=== PATIENT | female | born 1955 | race Two or more races ===

== ENCOUNTER 2017-08-28 13:28 | Inpatient (IN) | payer BC, OTHER ==
[~2017-08-28] VITALS: Ht 160 cm; Wt 60.5 kg
[2017-08-28] MEDS ORDERED: ACETAMINOPHEN 325 MG TABLET PO ONE (14:00)
[2017-08-28] MEDS ORDERED: SODIUM CHLORIDE 0.9% 1,000ML IVBOLUS ONE ×2 (14:00→15:00)
[2017-08-28] MEDS ORDERED: ACETAMINOPHEN 325 MG TABLET ONE (14:02)
[2017-08-28 14:19] LABS: PH, VENOUS 7.407 pH (7.320-7.420)
[2017-08-28 14:21] LABS: RAPID INFLUENZA A Negative (Negative); RAPID INFLUENZA B Negative (Negative)
[2017-08-28 14:32] LABS: ALANINE AMINOTRANSFERASE 104 U/L (12-78); ALBUMIN 1.8 g/dL (3.4-5.0); ANION GAP 14 mmol/L (5-15); CALCIUM 7.6 mg/dL (8.5-10.1); CHLORIDE 86 mmol/L (98-107); CREATININE 1.35 mg/dL (0.55-1.02)
[2017-08-28 14:34] LABS: ALKALINE PHOSPHATASE 327 U/L (45-117); BILIRUBIN,TOTAL 3.3 mg/dL (0.2-1.0); TOTAL PROTEIN 6.6 g/dL (6.4-8.2)
[2017-08-28 14:40] LABS: TROPONIN I < 0.015 ng/mL (0.000-0.045)
[2017-08-28] MEDS ORDERED: SODIUM CHLORIDE 0.9% 1,000 ML IV ONE (14:48)
[2017-08-28] MEDS ORDERED: METRONIDAZOLE PMX 500MG/100ML 100 ML ONE (14:54)
[2017-08-28] MEDS ORDERED: INSULIN REGULAR 100 UNITS/ML, 3ML VIAL ONE ×2 (14:54→15:00)
[2017-08-28] MEDS ORDERED: CEFOTETAN PMX 1GM/50ML 50 ML ONE (14:54)
[2017-08-28 14:57] LABS: MEAN CORPUSCULAR HEMOGLOBIN 27.6 pg (27.0-34.8); MEAN CORPUSCULAR HGB CONC 33.8 g/dL (32.4-35.8); MEAN CORPUSCULAR VOLUME 81.8 fL (80-100); MEAN PLATELET VOLUME 11.6 fL (7.4-10.4); PLATELET COUNT 69 x10^3/uL (130-400); RED BLOOD COUNT 4.15 x10^6/uL (3.82-5.3); RED CELL DISTRIBUTION WIDTH 14.5 % (9.6-15.2)
[2017-08-28 14:58] LABS: MD YES
[2017-08-28 15:00] LABS: ACETONE, SERUM Trace (10mg/dL) mg/dL (Negative); BAND#(MANUAL) 1.31 x10^3/uL; BANDS%(MANUAL) 13 % (0-7); LYMPH#(MANUAL) 0.61 x10^3/uL (1-3.4); LYMPHS% (MANUAL) 6 % (22-44); MONOS% (MANUAL) 1 % (2-9); SEG#(MANUAL) 8.08 x10^3/uL (1.8-6.8); SEGS% (MANUAL) 80 % (42-75)
[2017-08-28] MEDS ORDERED: METRONIDAZOLE PMX 500MG/100ML 100 ML IV ONE (15:00)
[2017-08-28] MEDS ORDERED: VANCOMYCIN PER PHARMACY MC PRN (15:00)
[2017-08-28] MEDS ORDERED: VANCOMYCIN 1,200 MG in SODIUM CHLORIDE 0.9% 250 ML IV ONE (15:00)
[2017-08-28] MEDS ORDERED: INSULIN REGULAR 100 UNITS/ML, 3ML VIAL SQ-INSULIN ONE (15:00)
[2017-08-28] MEDS ORDERED: CEFOTETAN PMX 1GM/50ML 50 ML IV ONE (15:00)
[2017-08-28 15:01] LABS: <PLATELET ESTIMATE> DECREASED; <RBC MORPHOLOGY> NORMAL; LARGE PLATELETS 1+
[2017-08-28 15:17] LABS: CULTURE INDICATED? YES; MICROSCOPIC INDICATED
[2017-08-28 17:00] VITALS: BP 122/73
[2017-08-28] MEDS ORDERED: DEXTROSE 50%, 50ML SYRINGE IVPush PRN (17:30)
[2017-08-28] MEDS ORDERED: DEXTROSE 4 GM TAB.CHEW PO PRN (17:30)
[2017-08-28] MEDS ORDERED: ONDANSETRON 2MG/ML, 2ML IVPush PRN (17:30)
[2017-08-28] MEDS ORDERED: GLUCAGON 1 MG IM PRN (17:30)
[2017-08-28] MEDS ORDERED: ACETAMINOPHEN 325 MG TABLET PO PRN (17:30)
[2017-08-28] MEDS: LACTATED RINGERS 1,000 ML IV SCH (17:59)
[2017-08-28] MEDS: INSULIN REGULAR 100 UNITS/ML, 3ML VIAL SQ-INSULIN SCH ×2 (18:24→22:32)
[2017-08-28] MEDS: SODIUM CHLORIDE FLUSH 10ML SYR IVF SCH (21:00)
[2017-08-28 21:29] VITALS: BP 135/72
[2017-08-28] MEDS: METRONIDAZOLE PMX 500MG/100ML 100 ML IV SCH (23:23)
[2017-08-29 01:13] VITALS: BP 120/66
[2017-08-29] MEDS: CEFTRIAXONE 2,000 MG in SODIUM CHLORIDE 0.9% 50 ML IV SCH (02:56)
[2017-08-29] MEDS ORDERED: CEFTRIAXONE PMX 2GM/50ML 50 ML IV SCH (03:00)
[2017-08-29 06:55] VITALS: BP 120/67
[2017-08-29 07:09] LABS: ALANINE AMINOTRANSFERASE 72 U/L (12-78); ALBUMIN 1.5 g/dL (3.4-5.0); ANION GAP 10 mmol/L (5-15); CHLORIDE 101 mmol/L (98-107); CREATININE 0.83 mg/dL (0.55-1.02)
[2017-08-29 07:12] LABS: ALKALINE PHOSPHATASE 198 U/L (45-117); BILIRUBIN,TOTAL 1.4 mg/dL (0.2-1.0); TOTAL PROTEIN 5.6 g/dL (6.4-8.2)
[2017-08-29] MEDS: LACTATED RINGERS 1,000 ML IV SCH (07:40)
[2017-08-29] MEDS: SODIUM CHLORIDE FLUSH 10ML SYR IVF SCH ×2 (07:40→20:47)
[2017-08-29] MEDS: METRONIDAZOLE PMX 500MG/100ML 100 ML IV SCH ×3 (07:40→23:50)
[2017-08-29] MEDS: INSULIN REGULAR 100 UNITS/ML, 3ML VIAL SQ-INSULIN SCH ×4 (07:41→20:47)
[2017-08-29 12:25] VITALS: BP 117/64
[2017-08-29] MEDS: POTASSIUM CHLORIDE 20 MEQ TAB.ER.PRT PO SCH ×2 (12:32→16:22)
[2017-08-29 20:18] VITALS: BP 118/68
[2017-08-30] MEDS: CEFTRIAXONE 2,000 MG in SODIUM CHLORIDE 0.9% 50 ML IV SCH (02:50)
[2017-08-30 02:56] VITALS: BP 119/68
[2017-08-30 07:18] VITALS: BP 120/67
[2017-08-30] MEDS: METRONIDAZOLE PMX 500MG/100ML 100 ML IV SCH ×2 (07:44→16:04)
[2017-08-30] MEDS: INSULIN REGULAR 100 UNITS/ML, 3ML VIAL SQ-INSULIN SCH ×4 (07:44→20:40)
[2017-08-30] MEDS: SODIUM CHLORIDE FLUSH 10ML SYR IVF SCH ×2 (07:44→21:00)
[2017-08-30 07:55] LABS: MEAN CORPUSCULAR HEMOGLOBIN 27.1 pg (27.0-34.8); MEAN CORPUSCULAR HGB CONC 33.6 g/dL (32.4-35.8); MEAN CORPUSCULAR VOLUME 80.7 fL (80-100); MEAN PLATELET VOLUME 9.8 fL (7.4-10.4); PLATELET COUNT 124 x10^3/uL (130-400); RED BLOOD COUNT 4.09 x10^6/uL (3.82-5.3); RED CELL DISTRIBUTION WIDTH 14.1 % (9.6-15.2)
[2017-08-30 08:05] LABS: ALANINE AMINOTRANSFERASE 42 U/L (12-78); ALBUMIN 1.3 g/dL (3.4-5.0); ANION GAP 9 mmol/L (5-15); CALCIUM 6.9 mg/dL (8.5-10.1); CHLORIDE 105 mmol/L (98-107)
[2017-08-30 08:08] LABS: ALKALINE PHOSPHATASE 161 U/L (45-117); BILIRUBIN,TOTAL 1.1 mg/dL (0.2-1.0); CREATININE 0.67 mg/dL (0.55-1.02); TOTAL PROTEIN 6.2 g/dL (6.4-8.2)
[2017-08-30 08:27] LABS: MD YES
[2017-08-30 08:44] LABS: <PLATELET ESTIMATE> ADEQUATE; <PLT MORPHOLOGY> NORMAL PLT MORPH; <RBC MORPHOLOGY> NORMAL; LYMPH#(MANUAL) 0.65 x10^3/uL (1-3.4); LYMPHS% (MANUAL) 6 % (22-44); MONOS#(MANUAL) 0.65 x10^3/uL (0.3-2.7); MONOS% (MANUAL) 6 % (2-9); SEG#(MANUAL) 9.59 x10^3/uL (1.8-6.8); SEGS% (MANUAL) 88 % (42-75)
[2017-08-30] MEDS ORDERED: FUROSEMIDE 20 MG/2 ML IV ONE (09:30)
[2017-08-30 13:32] VITALS: BP 126/73
[2017-08-30 20:10] VITALS: BP 107/68
[2017-08-31] MEDS: METRONIDAZOLE PMX 500MG/100ML 100 ML IV SCH ×2 (00:19→07:50)
[2017-08-31 02:00] VITALS: BP 121/71
[2017-08-31] MEDS: CEFTRIAXONE 2,000 MG in SODIUM CHLORIDE 0.9% 50 ML IV SCH (03:28)
[2017-08-31 07:35] VITALS: BP 129/68
[2017-08-31] MEDS: INSULIN REGULAR 100 UNITS/ML, 3ML VIAL SQ-INSULIN SCH ×4 (08:34→21:13)
[2017-08-31] MEDS: SODIUM CHLORIDE FLUSH 10ML SYR IVF SCH ×2 (09:00→21:13)
[2017-08-31] MEDS ORDERED: METF10002 PO (10:41)
[2017-08-31] MEDS ORDERED: CIPR500T3 PO (10:41)
[2017-08-31 12:28] VITALS: BP 106/67
[2017-08-31] MEDS ORDERED: POTASSIUM CHLORIDE 20 MEQ TAB.ER.PRT PO ONE (13:00)
[2017-08-31] MEDS ORDERED: FUROSEMIDE 40 MG/4 ML IV ONE (13:00)
[2017-08-31] MEDS ORDERED: OMNIPAQUE 350 MG/ML, 100ML BOTTLE ONE (17:27)
[2017-08-31 18:36] VITALS: BP 118/65
[2017-08-31] MEDS: FUROSEMIDE 20 MG/2 ML IV SCH (18:44)
[2017-09-01] MEDS: FUROSEMIDE 20 MG/2 ML IV SCH ×5 (00:20→23:57)
[2017-09-01 02:40] VITALS: BP 123/70
[2017-09-01] MEDS: CEFTRIAXONE 2,000 MG in SODIUM CHLORIDE 0.9% 50 ML IV SCH (03:00)
[2017-09-01 06:48] VITALS: BP 129/70
[2017-09-01 08:00] LABS: ANION GAP 9 mmol/L (5-15); CALCIUM 7.4 mg/dL (8.5-10.1); CHLORIDE 103 mmol/L (98-107); CREATININE 0.73 mg/dL (0.55-1.02)
[2017-09-01] MEDS: SODIUM CHLORIDE FLUSH 10ML SYR IVF SCH ×2 (08:12→21:57)
[2017-09-01] MEDS: INSULIN REGULAR 100 UNITS/ML, 3ML VIAL SQ-INSULIN SCH ×4 (08:13→21:57)
[2017-09-01 12:58] VITALS: BP 126/65
[2017-09-01] MEDS: FLUCONAZOLE 200 MG TABLET PO SCH (17:00)
[2017-09-01 19:15] VITALS: BP 115/69
[2017-09-02 01:12] VITALS: BP 114/71
[2017-09-02] MEDS: CEFTRIAXONE 2,000 MG in SODIUM CHLORIDE 0.9% 50 ML IV SCH (03:00)
[2017-09-02] MEDS: FUROSEMIDE 20 MG/2 ML IV SCH ×4 (06:09→23:33)
[2017-09-02 07:02] VITALS: BP 148/71
[2017-09-02] MEDS: INSULIN REGULAR 100 UNITS/ML, 3ML VIAL SQ-INSULIN SCH ×4 (08:00→20:27)
[2017-09-02] MEDS: SODIUM CHLORIDE FLUSH 10ML SYR IVF SCH ×2 (08:01→20:27)
[2017-09-02 12:06] VITALS: BP_SYST 100; BP_SYST 99; BP_DIAS 55; BP_DIAS 58
[2017-09-02 12:36] VITALS: BP 105/62
[2017-09-02 17:25] VITALS: BP 124/72
[2017-09-02] MEDS: FLUCONAZOLE 200 MG TABLET PO SCH (17:27)
[2017-09-02 18:57] VITALS: BP 120/74
[2017-09-03 00:41] VITALS: BP 116/71
[2017-09-03] MEDS: CEFTRIAXONE 2,000 MG in SODIUM CHLORIDE 0.9% 50 ML IV SCH (03:31)
[2017-09-03 05:26] LABS: CHLORIDE 96 mmol/L (98-107)
[2017-09-03 05:31] LABS: ANION GAP 9 mmol/L (5-15); CALCIUM 7.8 mg/dL (8.5-10.1); CREATININE 0.82 mg/dL (0.55-1.02)
[2017-09-03] MEDS: FUROSEMIDE 20 MG/2 ML IV SCH ×3 (05:41→17:41)
[2017-09-03 06:57] VITALS: BP 121/71
[2017-09-03] MEDS: INSULIN REGULAR 100 UNITS/ML, 3ML VIAL SQ-INSULIN SCH ×4 (07:00→21:13)
[2017-09-03] MEDS: POTASSIUM CHLORIDE 20 MEQ TAB.ER.PRT PO SCH ×2 (07:40→11:52)
[2017-09-03 07:46] LABS: TROPONIN I < 0.015 ng/mL (0.000-0.045)
[2017-09-03] MEDS ORDERED: REGADENOSON 0.4 MG/5 ML SYRINGE ONE (08:09)
[2017-09-03 11:50] VITALS: BP 104/63
[2017-09-03] MEDS: SODIUM CHLORIDE FLUSH 10ML SYR IVF SCH ×2 (11:51→21:14)
[2017-09-03 14:30] VITALS: BP 98/62
[2017-09-03 17:30] VITALS: BP 114/72
[2017-09-03] MEDS: FLUCONAZOLE 200 MG TABLET PO SCH (17:41)
[2017-09-03 21:16] VITALS: BP 120/72
[2017-09-03 22:28] LABS: HEMOGLOBIN A1C 12.8 % (4.2-6.3)
[2017-09-04] MEDS: FUROSEMIDE 20 MG/2 ML IV SCH ×3 (00:36→11:56)
[2017-09-04 00:37] VITALS: BP 133/76
[2017-09-04] MEDS: CEFTRIAXONE 2,000 MG in SODIUM CHLORIDE 0.9% 50 ML IV SCH (03:41)
[2017-09-04 06:39] VITALS: BP 121/75
[2017-09-04] MEDS: INSULIN REGULAR 100 UNITS/ML, 3ML VIAL SQ-INSULIN SCH ×2 (08:16→12:19)
[2017-09-04] MEDS: SODIUM CHLORIDE FLUSH 10ML SYR IVF SCH (08:16)
[2017-09-04 09:01] LABS: ANION GAP 7 mmol/L (5-15); CALCIUM 8.2 mg/dL (8.5-10.1); CHLORIDE 95 mmol/L (98-107); CREATININE 0.96 mg/dL (0.55-1.02)
[2017-09-04] MEDS ORDERED: CIPR500T3 PO (10:54)
[2017-09-04] MEDS ORDERED: ASPI-515 PO (10:54)
[2017-09-04] MEDS ORDERED: LISI5TAB7 PO (10:54)
[2017-09-04] MEDS ORDERED: FURO-93 PO (10:54)
== END 2017-09-04 14:36 | disposition home or self-care (01) | DRG 871 ==
LOC: ED 16:21 → EDIP 16:39 → 4EST 16:41
PROVIDERS: ADMIT Internal Medicine Pulmonary Disease; ATTEND Internal Medicine Pulmonary Disease
PROC: 0T9B70Z Drainage of Bladder with Drainage Device, Via Natural or Artificial Opening (ICD-10-PCS; principal; 2017-08-28)
DX: A41.51 Sepsis due to Escherichia coli [E. coli] (principal); J96.01 Acute respiratory failure with hypoxia; N17.0 Acute kidney failure with tubular necrosis; E11.00 Type 2 diabetes mellitus with hyperosmolarity without nonketotic hyperglycemic-hyperosmolar coma (NKHHC); I50.43 Acute on chronic combined systolic (congestive) and diastolic (congestive) heart failure; D69.6 Thrombocytopenia, unspecified; E87.1 Hypo-osmolality and hyponatremia; K80.40 Calculus of bile duct with cholecystitis, unspecified, without obstruction; N13.6 Pyonephrosis; E86.0 Dehydration; E87.6 Hypokalemia; I11.0 Hypertensive heart disease with heart failure; K72.90 Hepatic failure, unspecified without coma; M79.7 Fibromyalgia; R65.20 Severe sepsis without septic shock; Z79.4 Long term (current) use of insulin
CPT/HCPCS: 36415; 71045; 71046; 71275; 76700; 78452; 80048; 80053; 81001; 82010; 82150; 82803; 82947; 82962; 83036; 83605; 83690; 83735; 83880; 84145; 84484; 85025; 87040; 87077; 87086; 87106; 87186; 87400; 93005; 93017; 93306; 96361; 96365; 96372; J0696; J1815; J1940; J2785; J3370; Q9967; A9502; C9898; J7030; J7050; J7120; S0074

== ENCOUNTER 2018-02-03 18:49 | Inpatient (IN) | payer OTHER ==
[~2018-02-03] VITALS: Ht 157.5 cm; Wt 68.0 kg
[~2018-02-03 18:49] MED LIST: ASPI-515 PO; CIPR500T3 PO; FURO-93 PO; LISI5TAB7 PO; METF10003 PO
[2018-02-03] MEDS ORDERED: ASPIRIN 81 MG TABLET CHEW PO ONE (19:30)
[2018-02-03] MEDS ORDERED: METF500T5 PO (19:31)
[2018-02-03] MEDS ORDERED: SIMV20TA3 PO (19:31)
[2018-02-03] MEDS ORDERED: LISI-167 PO (19:31)
[2018-02-03] MEDS ORDERED: ASPIRIN 81 MG TABLET CHEW ONE (19:36)
[2018-02-03 19:46] LABS: BASOPHILS # (AUTO) 0.02 x10^3/uL (0-0.1); BASOPHILS % (AUTO) 0 % (0-1); EOSINOPHILS # (AUTO) 0.13 x10^3/uL (0-0.4); EOSINOPHILS % (AUTO) 3 % (1-7); LYMPHOCYTES % (AUTO) 46 % (22-44); MD NO; MEAN CORPUSCULAR HEMOGLOBIN 29.9 pg (27.0-34.8); MEAN CORPUSCULAR HGB CONC 34.3 g/dL (32.4-35.8); MEAN CORPUSCULAR VOLUME 87.4 fL (80-100); MONOCYTES # (AUTO) 0.32 x10^3/uL (0.2-0.8); MONOCYTES % (AUTO) 6 % (2-9); NEUTROPHILS # (AUTO) 2.23 x10^3/uL (1.8-6.8); NEUTROPHILS % (AUTO) 45 % (42-75); PLATELET COUNT 207 x10^3/uL (130-400); RED CELL DISTRIBUTION WIDTH 12.6 % (9.6-15.2)
[2018-02-03 19:54] LABS: ALANINE AMINOTRANSFERASE 245 U/L (12-78); ALBUMIN 3.7 g/dL (3.4-5.0); ANION GAP 7 mmol/L (5-15); CHLORIDE 103 mmol/L (98-107); CREATININE 1.39 mg/dL (0.55-1.02)
[2018-02-03 19:59] LABS: ALKALINE PHOSPHATASE 75 U/L (45-117); BILIRUBIN,TOTAL 0.4 mg/dL (0.2-1.0); TROPONIN I < 0.015 ng/mL (0.000-0.045)
[2018-02-03] MEDS ORDERED: NITROGLYCERIN SINGLE TAB 0.4 MG SL ONE (19:59)
[2018-02-03] MEDS ORDERED: MORPHINE SULFATE 4 MG/ML, 1ML ONE (19:59)
[2018-02-03] MEDS ORDERED: NITROGLYCERIN SINGLE TAB 0.4 MG SL PRN (20:00)
[2018-02-03] MEDS ORDERED: MORPHINE SULFATE 4 MG/ML, 1ML IVPush PRN (20:00)
[2018-02-03] MEDS ORDERED: SODIUM CHLORIDE 0.9%, 500ML IVBOLUS ONE (21:00)
[2018-02-03] MEDS ORDERED: SODIUM CHLORIDE 0.9% 1,000 ML IV SCH (22:34)
[2018-02-03] MEDS ORDERED: ACETAMINOPHEN 325 MG TABLET PO PRN (23:00)
[2018-02-03] MEDS ORDERED: BISACODYL 10 MG SUPP PR PRN (23:00)
[2018-02-03] MEDS ORDERED: ONDANSETRON 2MG/ML, 2ML IVPush PRN (23:00)
[2018-02-03] MEDS ORDERED: POLYETHYLENE GLYCOL 17 GM PACKET PO PRN (23:00)
[2018-02-03] MEDS ORDERED: DOCUSATE 100 MG CAPSULE PO PRN (23:00)
[2018-02-03] MEDS ORDERED: LABETALOL 5MG/ML, 20ML IVPush PRN (23:00)
[2018-02-03] MEDS ORDERED: NITROGLYCERIN 0.4 MG BOTTLE (25 TABS) SL PRN (23:00)
[2018-02-03 23:01] VITALS: BP 160/76
[2018-02-03] MEDS: morphine SULFATE 10 MG/ML, 1ML IVPush PRN (23:04)
[2018-02-03] MEDS: HEPARIN 5,000 UNITS/ML, 1ML SQ SCH (23:10)
[2018-02-04 00:10] LABS: TROPONIN I < 0.015 ng/mL (0.000-0.045)
[2018-02-04 00:28] VITALS: BP 150/74
[2018-02-04 01:39] VITALS: BP 152/79
[2018-02-04 05:47] LABS: BASOPHILS # (AUTO) 0.01 x10^3/uL (0-0.1); BASOPHILS % (AUTO) 0 % (0-1); EOSINOPHILS # (AUTO) 0.17 x10^3/uL (0-0.4); EOSINOPHILS % (AUTO) 3 % (1-7); LYMPHOCYTES # (AUTO) 2.32 x10^3/uL (1-3.4); LYMPHOCYTES % (AUTO) 47 % (22-44); MD NO; MEAN CORPUSCULAR HGB CONC 33.2 g/dL (32.4-35.8); MEAN CORPUSCULAR VOLUME 87.1 fL (80-100); MEAN PLATELET VOLUME 7.9 fL (7.4-10.4); MONOCYTES # (AUTO) 0.33 x10^3/uL (0.2-0.8); MONOCYTES % (AUTO) 7 % (2-9); NEUTROPHILS # (AUTO) 2.15 x10^3/uL (1.8-6.8); NEUTROPHILS % (AUTO) 43 % (42-75); PLATELET COUNT 180 x10^3/uL (130-400); RED BLOOD COUNT 3.36 x10^6/uL (3.82-5.3); RED CELL DISTRIBUTION WIDTH 12.9 % (9.6-15.2)
[2018-02-04 05:55] LABS: ALBUMIN 3.2 g/dL (3.4-5.0); ANION GAP 6 mmol/L (5-15); CALCIUM 8.5 mg/dL (8.5-10.1); CHLORIDE 109 mmol/L (98-107)
[2018-02-04 05:57] LABS: TROPONIN I < 0.015 ng/mL (0.000-0.045)
[2018-02-04 05:59] LABS: ALANINE AMINOTRANSFERASE 182 U/L (12-78); ALKALINE PHOSPHATASE 64 U/L (45-117); BILIRUBIN,TOTAL 0.4 mg/dL (0.2-1.0); CHOL/HDL RATIO 4.6; CHOLESTEROL, TOTAL 180 mg/dL (140-239); CREATININE 1.15 mg/dL (0.55-1.02); HDL CHOL % 22 % (28-40); HDL CHOLESTEROL (DIRECT) 39 mg/dL (40-60); LDL CHOLESTEROL,CALCULATED 103 mg/dL (54-169); LDL/HDL RATIO 2.6 (0.5-3.0); TOTAL PROTEIN 7.2 g/dL (6.4-8.2); TRIGLYCERIDES 189 mg/dL (50-200); VLDL CHOLESTEROL 38 mg/dL (0-25)
[2018-02-04 07:39] VITALS: BP 154/77
[2018-02-04] MEDS: SODIUM CHLORIDE 0.9% 1,000 ML IV SCH ×2 (09:18→17:47)
[2018-02-04] MEDS: LISINOPRIL 5 MG TABLET PO SCH (09:18)
[2018-02-04] MEDS: ASPIRIN 325 MG TABLET EC PO SCH (09:18)
[2018-02-04] MEDS: HEPARIN 5,000 UNITS/ML, 1ML SQ SCH ×3 (09:21→22:59)
[2018-02-04 13:02] VITALS: BP 133/71
[2018-02-04] MEDS ORDERED: MAALOX/HYOSCYAMINE/LIDOCAINE 45 ML BTL PO ONE (15:30)
[2018-02-04] MEDS: INSULIN LISPRO 100 UNITS/ML, PEN SQ-INSULIN SCH ×2 (15:50→21:00)
[2018-02-04] MEDS: FAMOTIDINE 20 MG/2 ML IVPush SCH (20:56)
[2018-02-04 20:59] VITALS: BP 115/65
[2018-02-05 01:27] VITALS: BP 114/66
[2018-02-05] MEDS: SODIUM CHLORIDE 0.9% 1,000 ML IV SCH (01:48)
[2018-02-05] MEDS: morphine SULFATE 10 MG/ML, 1ML IVPush PRN (01:56)
[2018-02-05 03:46] LABS: BASOPHILS # (AUTO) 0.03 x10^3/uL (0-0.1); BASOPHILS % (AUTO) 1 % (0-1); EOSINOPHILS # (AUTO) 0.17 x10^3/uL (0-0.4); EOSINOPHILS % (AUTO) 3 % (1-7); LYMPHOCYTES # (AUTO) 2.33 x10^3/uL (1-3.4); LYMPHOCYTES % (AUTO) 40 % (22-44); MD NO; MEAN CORPUSCULAR HEMOGLOBIN 30.7 pg (27.0-34.8); MEAN CORPUSCULAR HGB CONC 34.9 g/dL (32.4-35.8); MEAN CORPUSCULAR VOLUME 88.1 fL (80-100); MONOCYTES # (AUTO) 0.37 x10^3/uL (0.2-0.8); MONOCYTES % (AUTO) 6 % (2-9); NEUTROPHILS # (AUTO) 2.99 x10^3/uL (1.8-6.8); NEUTROPHILS % (AUTO) 51 % (42-75); PLATELET COUNT 185 x10^3/uL (130-400); RED BLOOD COUNT 3.11 x10^6/uL (3.82-5.3); RED CELL DISTRIBUTION WIDTH 13.1 % (9.6-15.2)
[2018-02-05 03:56] LABS: ALANINE AMINOTRANSFERASE 108 U/L (12-78); ANION GAP 6 mmol/L (5-15); CALCIUM 7.9 mg/dL (8.5-10.1); CHLORIDE 114 mmol/L (98-107)
[2018-02-05 03:59] LABS: ALKALINE PHOSPHATASE 57 U/L (45-117); BILIRUBIN,TOTAL 0.4 mg/dL (0.2-1.0); CREATININE 1.33 mg/dL (0.55-1.02); TOTAL PROTEIN 6.7 g/dL (6.4-8.2)
[2018-02-05] MEDS: HEPARIN 5,000 UNITS/ML, 1ML SQ SCH (06:37)
[2018-02-05] MEDS: ASPIRIN 325 MG TABLET EC PO SCH (06:37)
[2018-02-05] MEDS: INSULIN LISPRO 100 UNITS/ML, PEN SQ-INSULIN SCH ×2 (06:40→11:00)
[2018-02-05] MEDS ORDERED: SODIUM CHLORIDE 0.45% 1,000 ML IV SCH (07:00)
[2018-02-05 07:44] VITALS: BP 143/73
[2018-02-05] MEDS: LISINOPRIL 5 MG TABLET PO SCH (08:04)
[2018-02-05] MEDS: FAMOTIDINE 20 MG/2 ML IVPush SCH (08:04)
[2018-02-05] MEDS ORDERED: PANT40TA5 PO (10:48)
== END 2018-02-05 12:33 | disposition home or self-care (01) | DRG 683 ==
LOC: ED 20:06 → EDIP 22:41 → 5SO 22:54
PROVIDERS: ADMIT Internal Medicine; ATTEND Internal Medicine
DX: N17.0 Acute kidney failure with tubular necrosis (principal); G72.0 Drug-induced myopathy; R07.89 Other chest pain; T46.6X5A Adverse effect of antihyperlipidemic and antiarteriosclerotic drugs, initial encounter; Z66 Do not resuscitate; M79.7 Fibromyalgia; I50.9 Heart failure, unspecified; I11.0 Hypertensive heart disease with heart failure; E78.5 Hyperlipidemia, unspecified; E11.65 Type 2 diabetes mellitus with hyperglycemia; D64.9 Anemia, unspecified; D69.6 Thrombocytopenia, unspecified; R74.0 Nonspecific elevation of levels of transaminase and lactic acid dehydrogenase [LDH]; Z79.84 Long term (current) use of oral hypoglycemic drugs; Z79.82 Long term (current) use of aspirin; Z83.3 Family history of diabetes mellitus; Z82.49 Family history of ischemic heart disease and other diseases of the circulatory system; Z79.1 Long term (current) use of non-steroidal anti-inflammatories (NSAID); Z79.899 Other long term (current) drug therapy; Z88.0 Allergy status to penicillin
CPT/HCPCS: 36415; 99285; S0028; 71045; 76700; 80053; 80061; 82550; 82962; 83735; 84100; 84484; 85025; 85379; 93005; 93306; 96374; J1644; J2270; J7030; J7040

== ENCOUNTER 2018-04-01 09:38 | Emergency (ER) | payer OTHER ==
[~2018-04-01] VITALS: Ht 157.5 cm; Wt 55.5 kg
[~2018-04-01 09:38] MED LIST changes: +LISI-167 PO; -METF10003 PO; +METF10007 PO; +METF500T17 PO; +PANT40TA5 PO; +SIMV20TA3 PO
[2018-04-01] MEDS ORDERED: ONDANSETRON ODT 4 MG ONE (10:39)
[2018-04-01] MEDS ORDERED: HYDROmorphone 2 MG/ML, 1ML ONE (10:40)
[2018-04-01] MEDS ORDERED: HYDROmorphone 2 MG/ML, 1ML IVPush PRN (11:00)
[2018-04-01] MEDS ORDERED: ONDANSETRON 2MG/ML, 2ML IVPush ONE (11:00)
[2018-04-01] MEDS ORDERED: SODIUM CHLORIDE FLUSH 10ML SYR IVF ONE (11:00)
[2018-04-01 11:02] LABS: BASOPHILS # (AUTO) 0.03 x10^3/uL (0-0.1); BASOPHILS % (AUTO) 1 % (0-1); EOSINOPHILS % (AUTO) 5 % (1-7); LYMPHOCYTES # (AUTO) 2.14 x10^3/uL (1-3.4); LYMPHOCYTES % (AUTO) 38 % (22-44); MD NO; MEAN PLATELET VOLUME 8.1 fL (7.4-10.4); MONOCYTES # (AUTO) 0.32 x10^3/uL (0.2-0.8); MONOCYTES % (AUTO) 6 % (2-9); NEUTROPHILS % (AUTO) 50 % (42-75); PLATELET COUNT 197 x10^3/uL (130-400); RED BLOOD COUNT 3.48 x10^6/uL (3.82-5.3); RED CELL DISTRIBUTION WIDTH 12.7 % (9.6-15.2)
[2018-04-01 11:07] LABS: MICROSCOPIC AUTO
[2018-04-01 11:09] LABS: CULTURE INDICATED? YES
[2018-04-01 11:14] LABS: INTERNATIONAL NORMALIZED RATIO 1.03 (0.93-1.1); PROTHROMBIN TIME 10.7 Seconds (9.6-11.5)
[2018-04-01 11:15] LABS: ALANINE AMINOTRANSFERASE 21 U/L (12-78); ALBUMIN 3.9 g/dL (3.4-5.0); ANION GAP 9 mmol/L (5-15); CALCIUM 8.9 mg/dL (8.5-10.1); CHLORIDE 108 mmol/L (98-107)
[2018-04-01 11:20] LABS: ALKALINE PHOSPHATASE 37 U/L (45-117); BILIRUBIN,TOTAL 0.4 mg/dL (0.2-1.0); CREATINE KINASE, TOTAL 82 U/L (26-192); CREATININE 1.64 mg/dL (0.55-1.02)
[2018-04-01] MEDS ORDERED: CEFTRIAXONE PMX 1GM/50ML 50 ML ONE (12:51)
[2018-04-01] MEDS ORDERED: CEFTRIAXONE 1,000 MG in SODIUM CHLORIDE 0.9% 50 ML IVPB ONE (13:00)
[2018-04-01 13:20] VITALS: BP 129/70
== END 2018-04-01 14:36 | disposition home or self-care (01) ==
LOC: ED 12:44
DX: G89.29 Other chronic pain (principal); N30.00 Acute cystitis without hematuria; E78.00 Pure hypercholesterolemia, unspecified; I50.9 Heart failure, unspecified; I11.0 Hypertensive heart disease with heart failure; E11.40 Type 2 diabetes mellitus with diabetic neuropathy, unspecified
CPT/HCPCS: 36415; 74022; 76700; 80053; 81001; 82550; 83605; 83690; 83880; 85025; 85610; 85730; 87040; 87086; 96374; 96375; 99285; J0696; J1170; J2405

== ENCOUNTER → 2018-04-03 | Outpatient (CLI) | payer OTHER ==
[2018-04-03 16:22] LABS: BASOPHILS # (AUTO) 0.03 x10^3/uL (0-0.1); BASOPHILS % (AUTO) 1 % (0-1); EOSINOPHILS # (AUTO) 0.49 x10^3/uL (0-0.4); EOSINOPHILS % (AUTO) 9 % (1-7); LYMPHOCYTES # (AUTO) 2.38 x10^3/uL (1-3.4); LYMPHOCYTES % (AUTO) 43 % (22-44); MD NO; MEAN CORPUSCULAR HEMOGLOBIN 29.3 pg (27.0-34.8); MEAN CORPUSCULAR HGB CONC 33.4 g/dL (32.4-35.8); MEAN CORPUSCULAR VOLUME 87.7 fL (80-100); MEAN PLATELET VOLUME 7.8 fL (7.4-10.4); MONOCYTES # (AUTO) 0.32 x10^3/uL (0.2-0.8); MONOCYTES % (AUTO) 6 % (2-9); NEUTROPHILS # (AUTO) 2.37 x10^3/uL (1.8-6.8); NEUTROPHILS % (AUTO) 42 % (42-75); PLATELET COUNT 204 x10^3/uL (130-400); RED BLOOD COUNT 3.45 x10^6/uL (3.82-5.3); RED CELL DISTRIBUTION WIDTH 12.3 % (9.6-15.2)
[2018-04-03 16:25] LABS: MICROSCOPIC AUTO
[2018-04-03 16:29] LABS: ALANINE AMINOTRANSFERASE 21 U/L (12-78); ANION GAP 8 mmol/L (5-15); CALCIUM 8.8 mg/dL (8.5-10.1); CHLORIDE 105 mmol/L (98-107); CREATININE 1.35 mg/dL (0.55-1.02)
[2018-04-03 16:31] LABS: ALKALINE PHOSPHATASE 38 U/L (45-117); BILIRUBIN,TOTAL 0.4 mg/dL (0.2-1.0); TOTAL PROTEIN 8.6 g/dL (6.4-8.2)
[2018-04-03 16:36] LABS: CREATININE,URINE RANDOM 98.7 mg/dL
== END | disposition home or self-care (01) ==
LOC: LAB 15:53
PROVIDERS: ATTEND Internal Medicine Nephrology
DX: E11.22 Type 2 diabetes mellitus with diabetic chronic kidney disease (principal); N18.3 Chronic kidney disease, stage 3 (moderate)
CPT/HCPCS: 36415; 80053; 81001; 82570; 84100; 84156; 85025

== ENCOUNTER → 2018-04-12 | Outpatient (CLI) | payer OTHER ==
[2018-04-12 15:52] LABS: CULTURE INDICATED? NO; MICROSCOPIC NOT IND
[2018-04-12 15:55] LABS: BASOPHILS # (AUTO) 0.06 x10^3/uL (0-0.1); BASOPHILS % (AUTO) 1 % (0-1); EOSINOPHILS # (AUTO) 0.36 x10^3/uL (0-0.4); EOSINOPHILS % (AUTO) 6 % (1-7); LYMPHOCYTES # (AUTO) 2.01 x10^3/uL (1-3.4); LYMPHOCYTES % (AUTO) 34 % (22-44); MD NO; MEAN CORPUSCULAR HEMOGLOBIN 30.2 pg (27.0-34.8); MEAN CORPUSCULAR HGB CONC 33.9 g/dL (32.4-35.8); MEAN CORPUSCULAR VOLUME 89.1 fL (80-100); MEAN PLATELET VOLUME 8.1 fL (7.4-10.4); MONOCYTES # (AUTO) 0.36 x10^3/uL (0.2-0.8); MONOCYTES % (AUTO) 6 % (2-9); NEUTROPHILS # (AUTO) 3.22 x10^3/uL (1.8-6.8); NEUTROPHILS % (AUTO) 54 % (42-75); PLATELET COUNT 228 x10^3/uL (130-400); RED BLOOD COUNT 3.33 x10^6/uL (3.82-5.3); RED CELL DISTRIBUTION WIDTH 12.9 % (9.6-15.2)
[2018-04-12 15:59] LABS: % IRON SATURATION 18 % (20-55); ALBUMIN 3.6 g/dL (3.4-5.0); ANION GAP 7 mmol/L (5-15); CALCIUM 9.1 mg/dL (8.5-10.1); CHLORIDE 104 mmol/L (98-107); CREATININE 1.79 mg/dL (0.55-1.02); IRON LEVEL 50 mcg/dL (50-170); TOTAL IRON BINDING CAPACITY 271 mcg/dL (250-450)
[2018-04-12 16:00] LABS: CREATININE,URINE RANDOM 64.9 mg/dL
== END | disposition home or self-care (01) ==
LOC: CFH 14:25
PROVIDERS: ATTEND Internal Medicine Nephrology
DX: N18.3 Chronic kidney disease, stage 3 (moderate) (principal); N17.9 Acute kidney failure, unspecified; E11.9 Type 2 diabetes mellitus without complications
CPT/HCPCS: 36415; 80069; 81003; 82306; 82570; 82784; 83516; 83540; 83550; 83735; 83970; 84155; 84156; 84165; 84550; 85025; 86038; 86160; 86225; 86235; 86255; 86256; 86334; 86376; 86431; 86480; 87806; G0475

== ENCOUNTER → 2018-04-14 | Outpatient (CLI) | payer OTHER ==
[2018-04-14 16:02] LABS: ALBUMIN 3.7 g/dL (3.4-5.0); ANION GAP 7 mmol/L (5-15); CALCIUM 9.2 mg/dL (8.5-10.1); CHLORIDE 106 mmol/L (98-107); CREATININE 1.59 mg/dL (0.55-1.02)
[2018-04-14 16:09] LABS: HCT (SEDRATE) 29.8 % (34.6-47.8)
== END | disposition home or self-care (01) ==
LOC: CFH 11:45
PROVIDERS: ATTEND Internal Medicine Nephrology
DX: E11.22 Type 2 diabetes mellitus with diabetic chronic kidney disease (principal); N18.3 Chronic kidney disease, stage 3 (moderate); N17.9 Acute kidney failure, unspecified
CPT/HCPCS: 36415; 80069; 80074; 85651; 86038; 86160

== ENCOUNTER → 2018-05-05 | Outpatient (CLI) | payer OTHER ==
[2018-05-05 12:41] LABS: ALBUMIN 3.6 g/dL (3.4-5.0); ANION GAP 7 mmol/L (5-15); CALCIUM 9.1 mg/dL (8.5-10.1); CHLORIDE 106 mmol/L (98-107); CREATININE 1.17 mg/dL (0.55-1.02); CULTURE INDICATED? NO; MICROSCOPIC NOT IND
[2018-05-05 12:44] LABS: CREATININE,URINE RANDOM 53.8 mg/dL
== END | disposition home or self-care (01) ==
LOC: CFH 10:10
PROVIDERS: ATTEND Internal Medicine Nephrology
DX: N18.3 Chronic kidney disease, stage 3 (moderate) (principal)
CPT/HCPCS: 36415; 80069; 81003; 82570; 84156; 86225

== ENCOUNTER → 2018-05-26 | Outpatient (CLI) | payer OTHER ==
[2018-05-26 09:07] LABS: MICROSCOPIC INDICATED
[2018-05-26 09:17] LABS: ALBUMIN 3.7 g/dL (3.4-5.0); ANION GAP 5 mmol/L (5-15); CALCIUM 8.4 mg/dL (8.5-10.1); CHLORIDE 107 mmol/L (98-107); CREATININE 1.28 mg/dL (0.55-1.02)
[2018-05-26 09:18] LABS: CREATININE,URINE RANDOM 66.6 mg/dL
[2018-05-26 10:11] LABS: HEMOGLOBIN A1C 7.6 % (4.2-6.3)
== END | disposition home or self-care (01) ==
LOC: LAB 08:39
PROVIDERS: ATTEND Internal Medicine Nephrology
DX: E11.9 Type 2 diabetes mellitus without complications (principal); N18.3 Chronic kidney disease, stage 3 (moderate)
CPT/HCPCS: 36415; 80069; 81001; 82570; 83036; 84156

== ENCOUNTER → 2018-08-07 | Outpatient (CLI) | payer OTHER ==
[2018-08-07 12:56] LABS: ANION GAP 5 mmol/L (5-15); CALCIUM 9.5 mg/dL (8.5-10.1); CHLORIDE 106 mmol/L (98-107); CREATININE 1.39 mg/dL (0.55-1.02)
[2018-08-07 13:03] LABS: MICROSCOPIC AUTO
[2018-08-07 13:05] LABS: CULTURE INDICATED? YES
[2018-08-07 13:06] LABS: HEMOGLOBIN A1C 8.6 % (4.2-6.3)
== END | disposition home or self-care (01) ==
LOC: CFH 10:28
PROVIDERS: ATTEND Internal Medicine Nephrology
DX: E11.22 Type 2 diabetes mellitus with diabetic chronic kidney disease (principal); N18.3 Chronic kidney disease, stage 3 (moderate)
CPT/HCPCS: 36415; 80069; 81001; 82570; 83036; 84156; 87077; 87086; 87186